=== PATIENT | male | born 1985 | race Asian ===

== ENCOUNTER 2017-12-21 21:04 | Emergency (ER) | payer OTHER ==
[~2017-12-21] VITALS: Ht 177.8 cm; Wt 75.7 kg
[2017-12-21 21:10] VITALS: BP_SYST 161
[2017-12-21 22:10] VITALS: BP_SYST 166
== END 2017-12-21 22:10 | disposition home or self-care (01) ==
LOC: SED 21:04
DX: F41.9 Anxiety disorder, unspecified (principal)
CPT/HCPCS: 99283